=== PATIENT | female | born 1980 | race Caucasian/White ===

== ENCOUNTER 2020-04-19 05:13 | Emergency (ER) | payer SELFPAY ==
[2020-04-19] MEDS ORDERED: CEFTRIAXONE 1 GM/D5W RTU 1 GM/50 ML RTUPB IV ONE (05:20)
[2020-04-19] MEDS ORDERED: PANTOPRAZOLE SODIUM 40 MG VIAL IV PRN (05:21)
[2020-04-19] MEDS ORDERED: PANTOPRAZOLE SODIUM 40 MG VIAL IV ONE (05:21)
[2020-04-19] MEDS ORDERED: SUCCINYLCHOLINE CHLORIDE INJ 200 MG/10 ML VIAL IV ONE (05:22)
[2020-04-19] MEDS ORDERED: KETAMINE HCL INJ 500 MG/10 ML VIAL IV ONE (05:22)
[2020-04-19] MEDS ORDERED: TRANEXAMIC ACID INJ/PF 1,000 MG/10 ML SDV IV STA (05:23)
[2020-04-19] MEDS ORDERED: PHYTONADIONE INJ 10 MG/1 ML AMPULE SUBCUT ONE (05:34)
[2020-04-19 05:46] LABS: MEAN CORPUSCULAR HEMOGLOBIN 29.5 pg (27.0-33.4); MEAN CORPUSCULAR HGB CONC 34.5 g/dL (32.0-36.0); MEAN CORPUSCULAR VOLUME 86 fl (80-97); PLATELET COUNT 388 10^3/uL (150-450); RED BLOOD COUNT 1.66 10^6/uL (3.72-5.28); RED CELL DISTRIBUTION WIDTH 15.5 % (11.5-14.0)
[2020-04-19 05:50] LABS: INTERNATIONAL RATION (INR) 2.29; PARTIAL THROMBOPLASTIN TIME 36.9 SEC (23.5-35.8); PROTHROMBIN TIME 25.2 SEC (11.4-15.4)
[2020-04-19 06:02] LABS: ACETAMINOPHEN < 10 ug/mL (10-30); ALBUMIN 1.8 g/dL (3.5-5.0); ALCOHOL < 10 mg/dL (NONE DETECTED); ALKALINE PHOSPHATASE 57 U/L (38-126); ANION GAP 5 (5-19); ASPARTATE AMINO TRANSFERASE 43 U/L (14-36); BILIRUBIN,DIRECT 1.6 mg/dL (0.0-0.4); BILIRUBIN,TOTAL 2.6 mg/dL (0.2-1.3); BLOOD UREA NITROGEN 8 mg/dL (7-20); CALCIUM 8.6 mg/dL (8.4-10.2); CARBON DIOXIDE 21 mmol/L (22-30); CHLORIDE 109 mmol/L (98-107); GLUCOSE 152 mg/dL (75-110); POTASSIUM 3.2 mmol/L (3.6-5.0); SALICYLATE < 1.0 mg/dL (2.0-20.0); TOTAL PROTEIN 3.9 g/dL (6.3-8.2)
--- NOTE | 2020-04-19 06:03 | ER Document Report ---
ED General - General Chief Complaint: Blood Pressure Problem Stated Complaint: HYPOTENSION Notes: 40-year-old female history of alcoholic cirrhosis presents with GI bleed with hematemesis and massive amounts of maroon blood per rectum. Initially unable to give history, patient now responsive and says that she has alcoholic liver disease and has previously had GI bleed from ulcer but denies any known variceal bleed. History limited by acuity. Denies abdominal pain, fever - Related Data Allergies/Adverse Reactions: Penicillins Allergy (Verified 04/19/20 05:48) Past Medical History - General Information source: Patient - Social History Smoking Status: Unknown if Ever Smoked Family History: Reviewed & Not Pertinent Review of Systems - Review of Systems -: Yes ROS unobtainable due to patient's medical condition Physical Exam - Vital signs Vitals: Resp BP Pulse Ox 15 114/46 L 100 04/19/20 05:16 04/19/20 05:16 04/19/20 05:16 - Notes Notes: PHYSICAL EXAMINATION: GENERAL: Ill appearing cachectic jaundiced adult woman appearing older than stated age HEAD: Atraumatic, normocephalic. EYES: Pupils equal round and appropriate constriction, sclera jaundice ENT: nares patent, blood crusting around nares, vomiting bright red blood NECK: Normal range of motion, supple without lymphadenopathy LUNGS: Breath sounds clear to auscultation bilaterally and equal. No wheezes rales or rhonchi. HEART: Mildly tachycardic, no murmurs ABDOMEN: Soft, nontender, approximately 2 L of wound blood pouring out of anus pooling in stretcher EXTREMITIES: Normal range of motion, no pitting or edema. No cyanosis. NEUROLOGICAL: initially obtunded then awake and oriented, alert, conversing appropriately, moves all extremities spontaneously. SKIN: Warm, Dry Course - Re-evaluation Re-evalutation: 04/19/20 06:03 Patient with massive GI bleed possibly rapid transit upper GI bleed versus simultaneous GI bleed in multiple locations secondary to severe cirrhotic coagulopathy, patient very unstable. RNs obtained 3 large-bore IVs and as per transfusion protocol was started, patient has very received 2 units on pressure bag and will continue giving MTP in 1:1:1. Patient's mental status greatly improved after initial resuscitation and now awake and oriented and able to give history, requested to speak to ex- which may start facilitating, discussed case with wheel mill operator Dr. Villeda at [facility] and patient is accepted to ICU care and they have beds available. 04/19/20 06:32 Patient's vitals continue to be improved with mild tachycardia normal blood pressure, call Dr. Villeda at [facility] and give him update on patient's status, requested that Julian fax lab results to [facility], turned care over to Dr. Hahn awaiting transfer 04/19/20 07:09 Patient's vitals remained improved, now only borderline tachycardic, normal blood pressure, no additional episodes of hematemesis, patient remains appropriate for transfer at this time. - Vital Signs Vital signs: Temp Pulse Resp BP Pulse Ox 96.9 F L 20 122/75 100 04/19/20 05:51 04/19/20 06:50 04/19/20 06:50 04/19/20 06:50 - Laboratory Result Diagrams: 04/19/20 05:20 04/19/20 05:20 Laboratory results interpreted by me: 04/19/20 04/19/20 04/19/20 05:20 05:20 05:20 WBC 13.0 H RBC 1.66 L Hgb 4.9 L* Hct 14.2 L* RDW 15.5 H Seg Neuts % (Manual) 87 H Band Neutrophils % 1 L Lymphocytes % (Manual) 10 L Monocytes % (Manual) 1 L Abs Neuts (Manual) 11.4 H PT 25.2 H APTT 36.9 H Sodium 135.4 L Potassium 3.2 L Chloride 109 H Carbon Dioxide 21 L Glucose 152 H Total Bilirubin 2.6 H Direct Bilirubin 1.6 H AST 43 H Ammonia Total Protein 3.9 L Albumin 1.8 L Salicylates < 1.0 L Acetaminophen < 10 L Crossmatch 04/19/20 04/19/20 05:20 06:06 WBC RBC Hgb Hct RDW Seg Neuts % (Manual) Band Neutrophils % Lymphocytes % (Manual) Monocytes % (Manual) Abs Neuts (Manual) PT APTT Sodium Potassium Chloride Carbon Dioxide Glucose Total Bilirubin Direct Bilirubin AST Ammonia 88.6 H Total Protein Albumin Salicylates Acetaminophen Crossmatch See Detail Critical Care Note - Critical Care Note Total time excluding time spent on procedures (mins): 100 - Spent time repeatedly reassessing critical patient with massive GI bleed and consulting specialists Discharge - Discharge Clinical Impression: GI bleed Qualifiers: GI bleed type/associated pathology: unspecified gastrointestinal hemorrhage type Qualified Code(s): K92.2 - Gastrointestinal hemorrhage, unspecified Cirrhosis Qualifiers: Hepatic cirrhosis type: alcoholic cirrhosis Ascites presence: without ascites Qualified Code(s): K70.30 - Alcoholic cirrhosis of liver without ascites Disposition: [facility]
[2020-04-19] MEDS ORDERED: NORMAL SALINE 250 ML IV PRN (06:14)
[2020-04-19 06:15] LABS: ABSOLUTE LYMPHOCYTES# (MANUAL) 1.3 10^3/uL (0.5-4.7); ABSOLUTE MONOCYTES # (MANUAL) 0.1 10^3/uL (0.1-1.4); BAND NEUTROPHILS % (MANUAL) 1 % (3-5); BASOPHILS % (MANUAL) 0 % (0-2); EOSINOPHILS % (MANUAL) 1 % (0-6); LYMPHOCYTES % (MANUAL) 10 % (13-45); MONOCYTES % (MANUAL) 1 % (3-13); SEGMENTED NEUTROPHILS % (MAN) 87 % (42-78); TOTAL CELLS COUNTED 100
[2020-04-19 06:16] LABS: POLYCHROMASIA SLIGHT; TOXIC GRANULATION SLIGHT
[2020-04-19 06:17] LABS: ANISOCYTOSIS SLIGHT; BURR CELLS 1+; HYPOCHROMASIA 1+; PLATELET COMMENT ADEQUATE; SCHISTOCYTES SLIGHT; TEAR DROP CELLS SLIGHT
[2020-04-19 06:18] LABS: HEMOGLOBIN 4.9 g/dL (12.0-15.5)
[2020-04-19] MEDS ORDERED: POTASSI CL 20 MEQ/50 ML RIDER 20 MEQ/50 ML RTUPB IV SCH (06:30)
[2020-04-19 06:32] LABS: HEMATOCRIT 14.2 % (36.0-47.0)
--- NOTE | 2020-04-19 07:42 | ER Document Report ---
Entered by IBAN PLASCENCIA SCRIBE 04/19/20 0738 Acting as scribe for:TAIWO FAUST MD Doctor's Note Notes: 04/19/20 07:35 Transport is here to transfer the patient. I evaluated the patient prior to transfer. She is hemodynamically stable. She stills has some hematemesis and has received a total of x4 units of blood and FFPs. She is medically stable for transfer. I personally performed the services described in the documentation, reviewed and edited the documentation which was dictated to the scribe in my presence, and it accurately records my words and actions.
[2020-04-19 08:12] VITALS: BP 129/69
[2020-04-19 10:17] LABS: PATH REVIEW PATHOLOGIST REVIEWED
== END 2020-04-19 07:40 | disposition short-term general hospital (02) ==
LOC: ER 05:13
DX: K92.0 Hematemesis (principal); K62.5 Hemorrhage of anus and rectum; K70.30 Alcoholic cirrhosis of liver without ascites; R00.0 Tachycardia, unspecified; Z88.0 Allergy status to penicillin
CPT/HCPCS: 99291; 96372; 96375; 96365; 96366; 96367; 86900; 86901; 36415; 36430; 86850; 80307 ×3; 82140; 84703; 85025; 85610; 85730; 80053; 86920; P9017; P9016; P9035; J3430; C9113; J0696; J3490; J0330

== ENCOUNTER 2020-05-03 01:58 | Emergency (ER) | payer SELFPAY ==
[2020-05-03] MEDS ORDERED: NORMAL SALINE 1000 ML 1,000 ML IV ONE ×2 (02:44→03:16)
[2020-05-03] MEDS ORDERED: PANTOPRAZOLE SODIUM 40 MG VIAL IV ONE (02:46)
[2020-05-03] MEDS ORDERED: PANTOPRAZOLE SODIUM 40 MG VIAL IV PRN (02:46)
[2020-05-03 02:47] LABS: ABSOLUTE BASOPHILS # (AUTO) 0.1 10^3/uL (0.0-0.2); ABSOLUTE EOSINOPHILS # (AUTO) 0.1 10^3/uL (0.0-0.6); ABSOLUTE MONOCYTES (AUTO) 1.1 10^3/uL (0.1-1.4); ABSOLUTE NEUT (AUTO) 10.7 10^3/uL (1.7-8.2); BASOPHILS % (AUTO) 0.7 % (0-2); EOSINOPHILS % (AUTO) 0.8 % (0-6); HEMATOCRIT 21.6 % (36.0-47.0); LYMPHOCYTES % (AUTO) 14.2 % (13-45); MEAN CORPUSCULAR HEMOGLOBIN 30.7 pg (27.0-33.4); MEAN CORPUSCULAR HGB CONC 34.9 g/dL (32.0-36.0); MEAN CORPUSCULAR VOLUME 88 fl (80-97); MONOCYTES % (AUTO) 7.5 % (3-13); PLATELET COUNT 469 10^3/uL (150-450); RED BLOOD COUNT 2.45 10^6/uL (3.72-5.28); RED CELL DISTRIBUTION WIDTH 17.4 % (11.5-14.0); SEGMENTED NEUTROPHILS % (AUTO) 76.8 % (42-78); TOTAL CELLS COUNTED % (AUTO) 100 %
[2020-05-03 02:48] LABS: HEMOGLOBIN 7.5 g/dL (12.0-15.5)
[2020-05-03 02:50] LABS: ALBUMIN 1.8 g/dL (3.5-5.0); ALKALINE PHOSPHATASE 101 U/L (38-126); ANION GAP 5 (5-19); ASPARTATE AMINO TRANSFERASE 51 U/L (14-36); BILIRUBIN,DIRECT 1.7 mg/dL (0.0-0.4); BILIRUBIN,TOTAL 2.8 mg/dL (0.2-1.3); BLOOD UREA NITROGEN 13 mg/dL (7-20); CALCIUM 7.7 mg/dL (8.4-10.2); CARBON DIOXIDE 27 mmol/L (22-30); CHLORIDE 99 mmol/L (98-107); GLUCOSE 104 mg/dL (75-110); POTASSIUM 3.9 mmol/L (3.6-5.0)
[2020-05-03] MEDS ORDERED: ONDANSETRON HCL INJ/PF 4 MG/2 ML SDV IV ONE (03:23)
--- NOTE | 2020-05-03 03:23 | ER Document Report ---
ED General - General Chief Complaint: GI Bleeding Stated Complaint: VOMITING BLOOD Time Seen by Provider: 05/03/20 02:41 Primary Care Provider: ASHWINI PITTMAN MD [Primary Care Provider] - Follow up as needed - HPI Context: This is a 41-year-old female with a history of alcoholic cirrhosis, prior GI bleeds, reported esophageal varices presenting to the emergency department complaining of sudden onset nausea and vomiting blood that started approximately 3 hours prior to presentation. Patient has had GI bleeds in the past. Patient states that she is vomiting bright red blood and also has blood per rectum. Patient has describing a sharp mid abdominal pain that she rates as a 4 out of 5. Patient denies any exacerbating factors or any alleviating factors at this time. Patient denies fever, chills, cough, loss of sense of taste or loss of sense of smell, prior COVID 19 infection or known exposure to COVID positive patient's or persons under investigation for COVID. Patient states she is being followed at [facility] for her cirrhosis. Associated symptoms: Other - See HPI Exacerbated by: Other - See HPI Relieved by: Other - See HPI Similar symptoms previously: Yes - Related Data Allergies/Adverse Reactions: NSAIDS (Non-Steroidal Anti-Inflamma Allergy (Verified 05/03/20 02:27) Penicillins Allergy (Verified 04/19/20 05:48) Sulfa (Sulfonamide Antibiotics) Allergy (Verified 05/03/20 02:27) Past Medical History - General Information source: Patient - Social History Smoking Status: Unknown if Ever Smoked Family History: Reviewed & Not Pertinent Patient has homicidal ideation: No Review of Systems - Review of Systems Constitutional: No symptoms reported EENT: No symptoms reported Cardiovascular: No symptoms reported Respiratory: No symptoms reported Gastrointestinal: Abdominal pain, Blood in vomit, Other - Blood per rectum Genitourinary: No symptoms reported Female Genitourinary: No symptoms reported Musculoskeletal: No symptoms reported Skin: No symptoms reported Hematologic/Lymphatic: No symptoms reported Neurological/Psychological: No symptoms reported -: Yes All other systems reviewed and negative Physical Exam - Vital signs Vitals: Temp 98.1 F 05/03/20 01:58 - Notes Notes: CONSTITUTIONAL Patient appears very ill. Patient has a GCS of 15. Patient appears very thin, frail. HEAD [Atraumatic, Normocephalic.] EYES [Eyes are normal to inspection, No discharge from eyes, Extraocular muscles intact, scleral icterus is present, Conjunctiva are normal.] ENT Patient has a small amount of dried blood on her lips and liquid blood within her oropharynx. NECK [Normal ROM, No jugular venous distention, No meningeal signs, no carotid bruit.] RESPIRATORY CHEST [Chest is nontender, Breath sounds normal, No respiratory distress.] CARDIOVASCULAR [Tachycardia, No murmurs, Normal S1 S2, No rub, No gallop.] ABDOMEN [Abdomen is tender, No pulsatile masses, No other masses, Bowel sounds normal, distension is present, No peritoneal signs, No hernias. Rectal exam significant for presence of maroon stool leaking from pt's anus BACK [There is no CVA Tenderness, There is no tenderness to palpation, Normal inspection.] UPPER EXTREMITY [Inspection normal, No cyanosis, No clubbing, No edema, 2+ radial pulses.] LOWER EXTREMITY [Inspection normal, No cyanosis, No clubbing, non pitting edema is present, No calf tenderness, 2+ femoral pulses.] NEURO [No focal motor deficits, No focal sensory deficits, Speech normal.] SKIN + pallor LYMPHATIC [No adenopathy in neck.] PSYCHIATRIC [depressed affect. ] Course - Vital Signs Vital signs: Temp Pulse Resp BP Pulse Ox 96.4 F L 136 H 16 87/50 L 100 05/03/20 06:02 05/03/20 06:02 05/03/20 06:02 05/03/20 06:02 05/03/20 06:02 - Laboratory Result Diagrams: 05/03/20 05:27 05/03/20 02:10 Laboratory results interpreted by me: 05/03/20 05/03/20 05/03/20 02:10 02:10 02:10 WBC 14.0 H RBC 2.45 L Hgb 7.5 L Hct 21.6 L RDW 17.4 H Plt Count 469 H Lymph % (Auto) Absolute Neuts (auto) 10.7 H Seg Neutrophils % PT APTT Sodium 131.3 L Calcium 7.7 L Total Bilirubin 2.8 H Direct Bilirubin 1.7 H AST 51 H Total Protein 4.0 L Albumin 1.8 L Urine Blood Crossmatch See Detail 05/03/20 05/03/20 05/03/20 03:19 05:27 05:27 WBC 19.6 H RBC 2.41 L Hgb 7.0 L Hct 21.2 L RDW 15.6 H Plt Count Lymph % (Auto) 6.6 L Absolute Neuts (auto) 17.1 H Seg Neutrophils % 87.4 H PT 24.1 H APTT 36.9 H Sodium Calcium Total Bilirubin Direct Bilirubin AST Total Protein Albumin Urine Blood MODERATE H Crossmatch - EKG Interpretation by Me Additional EKG results interpreted by me: 05/03/20 06:40 EKG obtained on 05/03/2020 at 0206 hrs. was interpreted by this MD. Findings: Sinus tachycardia, rate 146, normal axis, P waves proceed QRS complexes, AL interval within normal limits, QRS complex appears narrow, there are no obvious patterns of ST segment elevation or depression present to suggest acute myocardial ischemia or infarction. There is no prior EKG immediately available for comparison. Impression: Sinus tachycardia with nonspecific ST segments. - Consults Dr. Landry, ICU attending, [facility] Time consulted: 06:10 - Dr. Landry agreed to accept pt for transfer to his facility Reason for consultation: 05/03/20 06:50 active gi bleed with hypotension Procedures - Central Line Left Femoral Time completed: 05:14 - pt hypotensive Consent obtained: No - emergent Central line pre-insertion: Sterile PPE donned, Chloraprep applied Central line lumen type: Triple Anesthetic type: 1% Lidocaine mL's of anesthesia: 5 Ultrasound guided: No Line secured with sutures: Yes Central line post-insertion: Blood return from lumens, Biopatch applied, Sutured, Sterile dressing applied Number of attempts: 2 Complications: No Critical Care Note - Critical Care Note Total time excluding time spent on procedures (mins): 120 - Patient hypotensive with hematemesis and copious amounts of blood per rectum, patient requiring volume, critical care management, multiple reassessments patient status Discharge - Discharge Clinical Impression: Acute GI hemorrhage Condition: Serious Disposition: [facility] Referrals: ASHWINI PITTMAN MD [Primary Care Provider] - Follow up as needed
[2020-05-03] MEDS ORDERED: OCTREOTIDE ACETATE INJ/PF 100 MCG/1 ML SDV IV ONE (03:26)
[2020-05-03] MEDS ORDERED: NORMAL SALINE 500 ML with OCTREOTIDE ACETATE 500 MCG IV PRN ×2 (03:26)
[2020-05-03] MEDS ORDERED: TRANEXAMIC ACID INJ/PF 1,000 MG/10 ML SDV IV ONE (03:28)
[2020-05-03] MEDS ORDERED: OCTREOTIDE ACETATE INJ/PF 100 MCG/1 ML SDV ONE (03:34)
[2020-05-03 03:44] LABS: INTERNATIONAL RATION (INR) 2.16; PROTHROMBIN TIME 24.1 SEC (11.4-15.4)
[2020-05-03 03:45] LABS: PARTIAL THROMBOPLASTIN TIME 36.9 SEC (23.5-35.8)
[2020-05-03] MEDS ORDERED: NORMAL SALINE 250 ML IV PRN ×6 (04:35→06:23)
[2020-05-03] MEDS ORDERED: NOREPINEPHRINE BITARTRATE INJ/PF 4 MG/4 ML SDV IV ONE (05:00)
[2020-05-03] MEDS ORDERED: DEXTROSE 5%-WATER 250 ML with NOREPINEPHRINE BITARTRATE 4 MG IV PRN ×2 (05:30)
--- NOTE | 2020-05-03 06:04 | RADIOLOGY REPORT (SQ) ---
EXAM: XR Chest, 1 View EXAM DATE/TIME: 05/03/2020 5:27 AM CLINICAL HISTORY: The patient is 41 years old and is Female; gi bleed, abd pain, h/o peptic ulcer TECHNIQUE: Frontal view of the chest. COMPARISON: No relevant prior studies available. FINDINGS: LUNGS: There are mild bibasilar opacities, right more than left. Findings suggest atelectasis or pneumonia. The upper lungs are clear. PLEURAL SPACE: Small right pleural effusion. No obvious pneumothorax. HEART: No significant enlargement of the cardiac silhouette. MEDIASTINUM: Unremarkable. BONES/JOINTS: No acute osseous findings. UPPER ABDOMEN: Mild elevation of the right hemidiaphragm. IMPRESSION: 1. Mild bibasilar opacities, right more than left. Findings suggest atelectasis or pneumonia. 2. Small right pleural effusion.
[2020-05-03 06:10] LABS: ABSOLUTE EOSINOPHILS # (AUTO) 0.1 10^3/uL (0.0-0.6); ABSOLUTE LYMPHOCYTES (AUTO) 1.3 10^3/uL (0.5-4.7); ABSOLUTE MONOCYTES (AUTO) 1.1 10^3/uL (0.1-1.4); ABSOLUTE NEUT (AUTO) 17.1 10^3/uL (1.7-8.2); APPEARANCE,URINE CLEAR; BASOPHILS % (AUTO) 0.2 % (0-2); BILIRUBIN,URINE NEGATIVE (NEGATIVE); COLOR,URINE YELLOW; EOSINOPHILS % (AUTO) 0.3 % (0-6); GLUCOSE, URINE NEGATIVE (NEGATIVE); HEMATOCRIT 21.2 % (36.0-47.0); KETONES,URINE NEGATIVE (NEGATIVE); LEUKOCYTE ESTERASE,URINE NEGATIVE (NEGATIVE); LYMPHOCYTES % (AUTO) 6.6 % (13-45); MEAN CORPUSCULAR HEMOGLOBIN 29.1 pg (27.0-33.4); MEAN CORPUSCULAR VOLUME 88 fl (80-97); MONOCYTES % (AUTO) 5.5 % (3-13); NITRITE,URINE NEGATIVE (NEGATIVE); PLATELET COUNT 285 10^3/uL (150-450); PROTEIN,URINE NEGATIVE (NEGATIVE); RED BLOOD COUNT 2.41 10^6/uL (3.72-5.28); RED CELL DISTRIBUTION WIDTH 15.6 % (11.5-14.0); SEGMENTED NEUTROPHILS % (AUTO) 87.4 % (42-78); TOTAL CELLS COUNTED % (AUTO) 100 %; URINE SPECIFIC GRAVITY 1.006; UROBILINOGEN,URINE NEGATIVE mg/dL (<2.0); WHITE BLOOD COUNT 19.6 10^3/uL (4.0-10.5)
[2020-05-03] MEDS ORDERED: RINGERS SOLUTION,LACTATED 1,000 ML IV PRN (06:10)
[2020-05-03 07:13] VITALS: BP 71/41
--- NOTE | 2020-05-03 21:33 | EKG REPORT ---
SEVERITY:- BORDERLINE ECG - SINUS TACHYCARDIA LOW VOLTAGE THROUGHOUT BORDERLINE T WAVE ABNORMALITIES : Confirmed by: Sofia Medina MD 03-May-2020 21:31:54
== END 2020-05-03 07:25 | disposition short-term general hospital (02) ==
LOC: EDBD → ER 01:58
DX: K92.2 Gastrointestinal hemorrhage, unspecified (principal); I95.9 Hypotension, unspecified; Z88.0 Allergy status to penicillin; Z88.2 Allergy status to sulfonamides
CPT/HCPCS: 93005; 99291; 99292; 96361; 96375; 96365; 96366; 96368; 86900; 86901; 36415; 36430; 86850; 86922; 80307; 85025; 85610; 85730; 80053; 81001; 86920; 71045; 93010; 36556; P9017; P9016; P9035; J3490 ×2; J2354; C9113; J2405; J7060; J7030